=== PATIENT | male | born 1940 | race Two or more races ===

== ENCOUNTER 2017-03-16 17:22 | Emergency (ER) | payer MEDICARE ==
[~2017-03-16] VITALS: Ht 172.7 cm; Wt 81.2 kg
[~2017-03-16 17:22] MED LIST: /PANT40TA; ASPI81TA3; ATEN50TA2; LISI30TA3; NAPR500T; NITRO; VITAMIN D50000 UNT; tylenol
[2017-03-16] MEDS ORDERED: AMLO10TA2 PO (17:30)
[2017-03-16] MEDS ORDERED: LOSA100T36 PO (17:30)
[2017-03-16] MEDS: ACETAMINOPHEN 325 MG TAB PO ONE (18:30)
--- NOTE | 2017-03-16 18:46 | REP ---
Chest two views HISTORY: Cough Comparison: 06/07/2016 The lungs are clear. The heart is normal in size. The pulmonary vasculature is normal in appearance. The bony structure is intact. IMPRESSION: No acute disease. Signed by Orestes May MD 03/16/2017 06:37 P
[2017-03-16 19:49] LABS: BASO # 0.1 K/mm3 (0.0-0.2); BASO % 0.5 % (0.0-1.0); EOS # 0.1 K/mm3 (0.0-0.50); EOS % 0.8 % (0.0-3.0); LARGE UNSTAINED CELL # 0.2 K/mm3 (0.0-0.4); LARGE UNSTAINED CELL % 1.3 % (0.0-4.0); LYMPH # 0.9 K/mm3 (1.5-4.5); LYMPH % 5.4 % (24.0-44.0); MEAN CORPUSCULAR HEMOGLOBIN 32.1 pg (27.0-33.0); MEAN CORPUSCULAR HGB CONC 33.3 g/dl (32.0-36.5); MEAN CORPUSCULAR VOLUME 96.4 fl (80.0-96.0); MONO # 1.1 K/mm3 (0.0-0.8); MONO % 6.9 % (0.0-5.0); NEUTROPHILS # 14.1 K/mm3 (1.8-7.7); PLATELET COUNT, AUTOMATED 288 k/mm3 (150-450); RED CELL DISTRIBUTION WIDTH 12.2 % (11.5-14.5); WHITE BLOOD COUNT 16.5 K/mm3 (4.0-10.0)
[2017-03-16 19:53] LABS: CALCIUM LEVEL 8.1 MG/DL (8.8-10.2); CREATININE FOR GFR 1.28 MG/DL (0.70-1.30); POTASSIUM SERUM 3.8 MEQ/L (3.5-5.1)
[2017-03-16] MEDS ORDERED: ISOVUE-370 76% 100ML VIAL (Q9967) As Ordered ONE (20:51)
[2017-03-16] MEDS: NS 500 ML IV ONE (21:15)
--- NOTE | 2017-03-16 21:39 | ECGEPIP ---
Stationary ECG Study [facility] - ED Test Date: 2017-03-16 Pat Name: BRITTANEY GOLD Department: Room: - Gender: M Housekeeping Lead: waqas : 1940 Requested By: YOON Coronado PA-C Order Number: [id number] Reading MD: Candida Joe Measurements Intervals [place] Rate: 101 P: 63 PA: 173 QRS: 1 QRSD: 100 T: 21 QT: 328 QTc: 425 Interpretive Statements SINUS TACHYCARDIA ABNORMAL RHYTHM ECG ?OLD INFERIOR INFARCT NSTTW ABNORMALITY INCREASED RATE 06/14/13 Electronically Signed On 03-16-2017 21:39:31 EDT by Candida Joe
--- NOTE | 2017-03-16 22:10 | REPUSA ---
CLINICAL HISTORY: COUGH, FEVER TECHNIQUE: Multiple incremental axial, coronal and oblique images are obtained from the thoracic inle t to the upper abdomen. Intravenous contrast material was administered as per pulmonary embolism prot ocol. COMMENTS: There is excellent opacification of pulmonary arterial system without evidence for pulmonary embolism . Aorta is of normal caliber without evidence for dissection or aneurysm. Scattered upper lobe predominant centrilobular emphysema is noted. There is patchy confluent nodularity noted in the left upper lobe, may represent infectious process. Several small nodules are noted in the right upper lobe measuring up to 3 mm 4 mm calcified granuloma is noted in the superior segment of the RLL. Bilateral hilar and mediastinal lymphadenopathy seen, possibly reactive. There is no evidence of pleural or parenchymal mass. There are no pleural effusions. The heart and gr eat vessels are within normal limits. Images of the upper abdomen demonstrate no evidence of adrenal mass. Multiple hepatic hypodense lesio ns are note may represent cysts vs hemangiomas. Consider further workup with dedicated CT abdomen and pelvis with contrast The bony structures are free of lytic or blastic lesions. Multilevel degenerative changes are seen in volving the visualized thoracolumbar spine. Scattered calcifications are seen involving the aorta and major branches compatible with atherosclero sis. IMPRESSION: No evidence for pulmonary embolism. Scattered upper lobe predominant centrilobular emphysema is noted. There is patchy confluent nodularity noted in the left upper lobe, may represent infectious process. Several small nodules are noted in the right upper lobe measuring up to 3 mm 4 mm calcified granuloma is noted in the superior segment of the RLL. Bilateral hilar and mediastinal lymphadenopathy seen, possibly reactive. Multiple hepatic hypodense lesions are note may represent cysts vs hemangiomas. Consider further work up with dedicated CT abdomen and pelvis with contrast. Thank you for your kind referral of this patient.
[2017-03-16] MEDS ORDERED: TESS100C PO (22:21)
[2017-03-16] MEDS ORDERED: CHERSYP3 PO (22:21)
[2017-03-16] MEDS ORDERED: ZITHTAB PO (22:21)
[2017-03-16 22:22] VITALS: BP 135/61
[2017-03-16] MEDS: guaiFENesin/CODEINE SYRUP 5 ML UDC PO ONE (22:30)
--- NOTE | 2017-03-17 06:51 | ED PDOC ---
Post-Departure Follow-Up certitied letter sent to pt re formal read of cta . needs fu. no pcp documented. Kelvin Mayberry MD Mar 17, 2017 06:51
== END 2017-03-16 22:42 | disposition home or self-care (01) ==
LOC: M ED 17:22
DX: J18.9 Pneumonia, unspecified organism (principal); I25.2 Old myocardial infarction; Z79.82 Long term (current) use of aspirin; Z79.899 Other long term (current) drug therapy; Z88.1 Allergy status to other antibiotic agents; Z88.6 Allergy status to analgesic agent; Z88.8 Allergy status to other drugs, medicaments and biological substances
CPT/HCPCS: 36415; 71020; 71275; 80048; 85025; 93005; 99284; Q9967

== ENCOUNTER 2017-03-22 12:39 | Emergency (ER) | payer MEDICARE ==
[~2017-03-22] VITALS: Ht 172.7 cm; Wt 79.1 kg
[~2017-03-22 12:39] MED LIST changes: +AMLO10TA2 PO; +CHERSYP3 PO; +LOSA100T36 PO; +TESS100C PO; +ZITHTAB PO
[2017-03-22] MEDS ORDERED: NS 500 ML IV ONE (14:00)
[2017-03-22 15:08] LABS: BASO # 0.3 K/mm3 (0.0-0.2); BASO % 2.2 % (0.0-1.0); EOS # 0.4 K/mm3 (0.0-0.50); EOS % 3.6 % (0.0-3.0); LARGE UNSTAINED CELL # 0.3 K/mm3 (0.0-0.4); LARGE UNSTAINED CELL % 2.7 % (0.0-4.0); LYMPH # 1.7 K/mm3 (1.5-4.5); LYMPH % 13.6 % (24.0-44.0); MEAN CORPUSCULAR HEMOGLOBIN 31.6 pg (27.0-33.0); MEAN CORPUSCULAR HGB CONC 32.5 g/dl (32.0-36.5); MEAN CORPUSCULAR VOLUME 97.2 fl (80.0-96.0); MONO # 0.7 K/mm3 (0.0-0.8); MONO % 5.5 % (0.0-5.0); NEUTROPHILS # 8.8 K/mm3 (1.8-7.7); NEUTROPHILS % 72.4 % (36.0-66.0); PLATELET COUNT, AUTOMATED 476 k/mm3 (150-450); RED CELL DISTRIBUTION WIDTH 12.4 % (11.5-14.5); WHITE BLOOD COUNT 12.1 K/mm3 (4.0-10.0)
--- NOTE | 2017-03-22 15:09 | REP ---
TWO VIEW CHEST: COMPARISON: 03/16/2017. There is no evidence of acute infiltrate. No pleural effusion is seen. The heart is normal in size. The mediastinal silhouette is unremarkable. The visualized osseous structures are intact. There are mild degenerative changes of the spine. IMPRESSION: No acute pulmonary disease. Signed by Rell Pineda MD 03/22/2017 03:49 P
[2017-03-22 15:33] LABS: ANION GAP 6 MEQ/L (8-16); BLOOD UREA NITROGEN 18 MG/DL (7-18); CALCIUM LEVEL 8.4 MG/DL (8.8-10.2); CARBON DIOXIDE LEVEL 29 MEQ/L (21-32); CHLORIDE LEVEL 108 MEQ/L (98-107); CREATININE FOR GFR 1.24 MG/DL (0.70-1.30); GLOMERULAR FILTRATION RATE > 60.0 (>42); GLUCOSE, FASTING 110 MG/DL (83-110); SODIUM LEVEL 143 MEQ/L (136-145)
[2017-03-22 16:02] LABS: ALBUMIN 2.7 GM/DL (3.2-5.2); ALBUMIN/GLOBULIN RATIO 0.66 (1.00-1.93); BILIRUBIN,DIRECT 0.1 MG/DL (0.0-0.2); BILIRUBIN,TOTAL 0.4 MG/DL (0.2-1.0); TOTAL PROTEIN 6.8 GM/DL (6.4-8.2)
[2017-03-22] MEDS ORDERED: ALBU17IN INH (16:09)
[2017-03-22 16:19] VITALS: BP 152/81
--- NOTE | 2017-03-23 07:34 | ECGEPIP ---
Stationary ECG Study [facility] - ED Test Date: 2017-03-22 Pat Name: BRITTANEY GOLD Department: Room: - Gender: M Modeling Analyst: rn : 1940 Requested By: NANCY Arriaga Order Number: [id number] Reading MD: Candida Joe Measurements Intervals [place] Rate: 82 P: 70 CA: 168 QRS: -11 QRSD: 105 T: -10 QT: 386 QTc: 452 Interpretive Statements SINUS RHYTHM NSTTW ABNORMALITY ?PRIOR INFERIOR INFARCT DECREASED RATE 03/16/17 Electronically Signed On 03-23-2017 7:33:52 EDT by Candida Joe
== END 2017-03-22 16:21 | disposition home or self-care (01) ==
LOC: M ED 12:39
DX: J18.9 Pneumonia, unspecified organism (principal); I10 Essential (primary) hypertension; I25.10 Atherosclerotic heart disease of native coronary artery without angina pectoris; I25.2 Old myocardial infarction; Z95.5 Presence of coronary angioplasty implant and graft; Z88.1 Allergy status to other antibiotic agents; Z88.3 Allergy status to other anti-infective agents; Z88.8 Allergy status to other drugs, medicaments and biological substances; Z79.899 Other long term (current) drug therapy; Z79.2 Long term (current) use of antibiotics; Z79.82 Long term (current) use of aspirin

== ENCOUNTER → 2017-05-08 | Outpatient (REF) | payer MEDICARE ==
[~2017-05-08] MED LIST changes: +ALBU17IN INH
[2017-05-08 12:46] LABS: FOLATE 7.8 NG/ML
== END ==
LOC: M SFHCPLAZ 10:10
PROVIDERS: ATTEND Family Medicine
DX: D53.9 Nutritional anemia, unspecified (principal)
CPT/HCPCS: 36415; 82607; 82746; 86580; 90670; G0009; G0463

== ENCOUNTER → 2017-05-11 | Outpatient (CLI) | payer MEDICARE ==
[~2017-05-11] MED LIST changes: +ISOVUE-370 76% 100ML VIAL (Q9967) As Ordered ONE
--- NOTE | 2017-05-11 15:26 | REP ---
Clinical: Evaluate hepatic lesions. Technique: Axial contrast enhanced images from the lung bases to the pubic symphysis using 100 ml Isovue 370 intravenous contrast material along with precontrast, arterial phase, and delayed phase images of the abdomen with coronal and sagittal re-formations. Findings: Scattered hepatic lesions are identified throughout the liver which measure up to approximately 2.2 cm maximal diameter and remain low density throughout all sequences and compatible with benign hepatic cysts. Spleen, pancreas, gallbladder, bilateral adrenal glands and kidneys are normal. The enteric system is without obstruction or acute inflammatory process and a normal terminal ileum and appendix are identified in the right lower quadrant. Scattered sigmoid diverticula noted without acute diverticulitis. The pelvis demonstrates normal bladder and heterogeneous, enlarged prostate gland measuring 4.8 cm maximal diameter with mass effect on the bladder base noted. No ascites. No adenopathy. No free air. Small hiatal hernia at the gastroesophageal junction noted. Lung bases demonstrate COPD type changes with mild bronchiectasis. Impression: 1. Hepatic lesions measuring up to 2.2 cm all compatible with benign hepatic cysts. 2. Few scattered sigmoid diverticula without acute diverticulitis. 3. Enlarged heterogeneous prostate gland with mass effect on the base of the bladder. Signed by Nick Mckoy MD 05/11/2017 03:18 P
== END ==
LOC: M RAD 14:30
PROVIDERS: ATTEND Family Medicine
DX: K76.89 Other specified diseases of liver (principal)
CPT/HCPCS: 74178; Q9967

== ENCOUNTER → 2018-02-11 | Outpatient (CLI) | payer MEDICARE | LOC: M RAD 07:32 | DX: Z87.891 Personal history of nicotine dependence (principal) | CPT/HCPCS: 76706 ==

== ENCOUNTER 2020-06-02 00:07 | Emergency (ER) | payer MEDICARE ==
[~2020-06-02] VITALS: Ht 175.3 cm; Wt 75.9 kg
[~2020-06-02 00:07] MED LIST changes: -/PANT40TA; -AMLO10TA2 PO; +AMLO1TAB25 PO; -ISOVUE-370 76% 100ML VIAL (Q9967) As Ordered ONE; -LOSA100T36 PO; +LOSA100T50 PO; +PROT1TAB2
[2020-06-02] MEDS ORDERED: PLAV1TAB2 PO (00:22)
[2020-06-02] MEDS ORDERED: ROSU10TA6 PO (00:34)
[2020-06-02] MEDS ORDERED: CARV6.25 PO (00:34)
[2020-06-02 01:08] LABS: BASO % 0.3 % (0.0-1.0); EOS # 0.2 10^3/uL (0.0-0.5); EOS % 2.4 % (0.0-3.0); HEMATOCRIT 42.1 % (42.0-52.0); HEMOGLOBIN 13.4 g/dl (13.5-17.5); LYMPH # 1.3 10^3/uL (1.5-5.0); LYMPH % 14.9 % (24.0-44.0); MEAN CORPUSCULAR HEMOGLOBIN 30.6 pg (27.0-33.0); MEAN CORPUSCULAR HGB CONC 31.8 g/dl (32.0-36.5); MEAN CORPUSCULAR VOLUME 96.1 fl (80.0-96.0); MONO # 0.7 10^3/uL (0.0-0.8); MONO % 8.3 % (0.0-5.0); NEUTROPHILS # 6.4 10^3/uL (1.5-8.5); NEUTROPHILS % 73.4 % (36.0-66.0); PLATELET COUNT, AUTOMATED 325 10^3/uL (150-450); RED BLOOD COUNT 4.38 10^6/uL (4.30-6.10); WHITE BLOOD COUNT 8.8 10^3/uL (4.0-10.0)
--- NOTE | 2020-06-02 01:23 | REPVR ---
PROCEDURE INFORMATION: Exam: XR Chest, 1 View Exam date and time: 06/02/2020 1:14 AM Age: 80 years old Clinical indication: Other: Chest pain TECHNIQUE: Imaging protocol: XR of the chest Views: 1 view. COMPARISON: CR Chest, 2 view PA, Lat 03/22/2017 2:10 PM FINDINGS: Lungs: Unremarkable. No consolidation. Pleural space: Unremarkable. No pleural effusion. No pneumothorax. Heart/Mediastinum: Unremarkable. No cardiomegaly. Bones/joints: Unremarkable. IMPRESSION: Negative chest, similar to 03/22/2017. Electronically signed by: Van Eller On 06/02/2020 01:23:22 AM
[2020-06-02 01:44] LABS: ALBUMIN 3.3 GM/DL (3.2-5.2); ALT/SGPT 14 U/L (12-78); BILIRUBIN,DIRECT < 0.1 MG/DL (0.0-0.2); BILIRUBIN,TOTAL 0.4 MG/DL (0.2-1.0); FREE T4 1.26 NG/DL (0.76-1.46); LIPASE 67 U/L (73-393); NT-PRO BNP 152 PG/ML (<450); TOTAL PROTEIN 6.9 GM/DL (6.4-8.2)
[2020-06-02 02:45] VITALS: BP 161/86
--- NOTE | 2020-06-02 07:45 | ECGEPIP ---
[facility] - ED Test Date: 2020-06-02 Pat Name: BRITTANEY GOLD Department: Room: - Gender: Male Senior Executive Assistant: lr : 1940 Requested By: MIGNON Marcus Order Number: [id number] Reading MD: Fabián Godwin Measurements Intervals [place] Rate: 98 P: 64 NE: 183 QRS: -15 QRSD: 96 T: 25 QT: 340 QTc: 434 Interpretive Statements SINUS RHYTHM NSTTW ABNORMALITY(S) BASELINE ARTIFACT AFFECTS INTERPRETATION SIMILAR TO 03/22/17 Electronically Signed on 06-02-2020 7:45:17 EDT by Fabián Godwin
== END 2020-06-02 03:29 | disposition home or self-care (01) ==
LOC: M ED 00:07
DX: I10 Essential (primary) hypertension (principal); R94.31 Abnormal electrocardiogram [ECG] [EKG]; I25.10 Atherosclerotic heart disease of native coronary artery without angina pectoris; K21.9 Gastro-esophageal reflux disease without esophagitis; Z79.01 Long term (current) use of anticoagulants; Z79.899 Other long term (current) drug therapy; Z79.82 Long term (current) use of aspirin; Z88.1 Allergy status to other antibiotic agents; Z88.8 Allergy status to other drugs, medicaments and biological substances; Z87.891 Personal history of nicotine dependence; Z82.49 Family history of ischemic heart disease and other diseases of the circulatory system

== ENCOUNTER 2023-03-09 02:18 | Emergency (ER) | payer MEDICARE ==
[~2023-03-09] VITALS: Ht 172.7 cm; Wt 75.0 kg
[~2023-03-09 02:18] MED LIST changes: +CARV6.25 PO; +CLOP75TA99 PO; +LOSA100T46 PO; -LOSA100T50 PO; +ROSU10TA6 PO
[2023-03-09 04:09] LABS: BASO % 0.3 % (0.0-1.0); EOS % 0.2 % (0.0-3.0); HEMATOCRIT 36.1 % (42.0-52.0); HEMOGLOBIN 11.8 g/dl (13.5-17.5); LYMPH # 0.5 10^3/uL (1.5-5.0); LYMPH % 3.6 % (24.0-44.0); MEAN CORPUSCULAR HEMOGLOBIN 31.8 pg (27.0-33.0); MEAN CORPUSCULAR HGB CONC 32.7 g/dl (32.0-36.5); MEAN CORPUSCULAR VOLUME 97.3 fl (80.0-96.0); MONO # 1.2 10^3/uL (0.0-0.8); NEUTROPHILS # 11.2 10^3/uL (1.5-8.5); NEUTROPHILS % 86.4 % (36.0-66.0); PLATELET COUNT, AUTOMATED 257 10^3/uL (150-450); RED BLOOD COUNT 3.71 10^6/uL (4.30-6.10); WHITE BLOOD COUNT 12.9 10^3/uL (4.0-10.0)
[2023-03-09 04:30] LABS: BLOOD UREA NITROGEN 20 MG/DL (9-23); CALCIUM LEVEL 7.4 MG/DL (8.3-10.6); CARBON DIOXIDE LEVEL 27 MMOL/L (20-31); CHLORIDE LEVEL 107 MMOL/L (98-107); CREATININE FOR GFR 1.21 MG/DL (0.70-1.30); GLOMERULAR FILTRATION RATE > 60.0 (>35); GLUCOSE, FASTING 124 MG/DL (74-106); POTASSIUM SERUM 4.3 MMOL/L (3.5-5.1); SODIUM LEVEL 139 MMOL/L (136-145)
[2023-03-09] MEDS ORDERED: ACETAMINOPHEN TAB 650MG DOSE (2X325MG) PO ONE (07:05)
[2023-03-09] MEDS ORDERED: BENZ200C70 PO ×2 (09:26→09:57)
[2023-03-09 09:54] VITALS: BP 147/77; TEMP 100.2; O2SAT 92
[2023-03-09 09:56] VITALS: O2SAT 92
== END 2023-03-09 10:21 | disposition home or self-care (01) ==
LOC: EDBD 02:18 → M ED 02:18
DX: U07.1 COVID-19 (principal); I10 Essential (primary) hypertension; I25.2 Old myocardial infarction; Z85.038 Personal history of other malignant neoplasm of large intestine; Z85.828 Personal history of other malignant neoplasm of skin; Z88.6 Allergy status to analgesic agent; Z88.8 Allergy status to other drugs, medicaments and biological substances; Z79.51 Long term (current) use of inhaled steroids; Z79.82 Long term (current) use of aspirin; Z79.899 Other long term (current) drug therapy

== ENCOUNTER 2023-03-16 08:25 | Emergency (ER) | payer MEDICARE ==
[~2023-03-16] VITALS: Ht 172.7 cm; Wt 72.7 kg
[~2023-03-16 08:25] MED LIST changes: +BENZ200C70 PO
[2023-03-16] MEDS ORDERED: NS 1,000 ML IV SCH (08:45)
[2023-03-16] MEDS ORDERED: CARV12.5 PO (08:46)
[2023-03-16] MEDS ORDERED: OMEP40CA4 PO (08:50)
[2023-03-16 09:18] VITALS: TEMP 98.3
[2023-03-16 09:30] LABS: VENOUS BASE EXCESS -1.6 (-2.0-2.0); VENOUS HCO3 24.8 MMOL/L (23.0-27.0); VENOUS PARTIAL PRESSURE CO2 48.1 mmHg (38.0-50.0); VENOUS PARTIAL PRESSURE O2 33.6 mmHg (30.0-50.0); VENOUS STANDARD HCO3 22.2 MMOL/L; VENOUS TOTAL CO2 26.3 MMOL/L (24.0-28.0)
[2023-03-16] MEDS: COMBIVENT RESPIMAT 100-20MCG INHALER 4GM INH SCH (09:43)
[2023-03-16 09:44] LABS: BASO # 0.1 10^3/uL (0.0-0.2); BASO % 0.4 % (0.0-1.0); EOS % 0.1 % (0.0-3.0); HEMATOCRIT 36.2 % (42.0-52.0); HEMOGLOBIN 12.4 g/dl (13.5-17.5); LYMPH % 6.9 % (24.0-44.0); MEAN CORPUSCULAR HEMOGLOBIN 34.6 pg (27.0-33.0); MEAN CORPUSCULAR HGB CONC 34.3 g/dl (32.0-36.5); MEAN CORPUSCULAR VOLUME 101.1 fl (80.0-96.0); MONO # 1.5 10^3/uL (0.0-0.8); MONO % 10.4 % (2.0-8.0); NEUTROPHILS # 11.2 10^3/uL (1.5-8.5); NEUTROPHILS % 80.5 % (36.0-66.0); PLATELET COUNT, AUTOMATED 429 10^3/uL (150-450); RED BLOOD COUNT 3.58 10^6/uL (4.30-6.10)
[2023-03-16 09:57] LABS: INR 1.1; PROTHROMBIN TIME 14.4 SECONDS (12.5-14.5)
[2023-03-16 10:20] LABS: ALBUMIN 2.7 G/DL (3.2-5.2); BILIRUBIN,DIRECT 0.3 MG/DL (<0.4); BILIRUBIN,TOTAL 0.8 MG/DL (0.3-1.2); CALCIUM LEVEL 8.1 MG/DL (8.3-10.6); CREATININE FOR GFR 1.32 MG/DL (0.70-1.30); GLOMERULAR FILTRATION RATE 55.1 (>35); POTASSIUM SERUM 4.4 MMOL/L (3.5-5.1); TOTAL PROTEIN 6.5 G/DL (5.7-8.2)
[2023-03-16 10:27] LABS: THYROID STIMULATING HORMONE 1.11 uIU/ML (0.55-4.78); THYROXINE (T4) 12.3 UG/DL (4.5-10.9)
[2023-03-16] MEDS ORDERED: ISOVUE-370 76% 100ML VIAL As Ordered ONE (10:33)
[2023-03-16 11:21] LABS: VENOUS O2 SATURATION 72.5 % (60.0-80.0)
[2023-03-16 12:24] VITALS: O2SAT 93
[2023-03-16] MEDS ORDERED: VENTAER INH (13:27)
[2023-03-16] MEDS ORDERED: DOXY100C82 PO (13:28)
[2023-03-16 13:45] VITALS: BP 143/64; O2SAT 93
== END 2023-03-16 14:16 | disposition home or self-care (01) ==
LOC: EDBD 08:25 → M ED 08:25
DX: U07.1 COVID-19 (principal); I10 Essential (primary) hypertension; I25.2 Old myocardial infarction; Z95.5 Presence of coronary angioplasty implant and graft; Z88.6 Allergy status to analgesic agent; Z88.8 Allergy status to other drugs, medicaments and biological substances; Z79.51 Long term (current) use of inhaled steroids; Z79.899 Other long term (current) drug therapy; Z79.82 Long term (current) use of aspirin
CPT/HCPCS: 71045; 71275; 80048; 80076; 82803; 83605; 83880; 84436; 84443; 85025; 85610; 87040; 93005; 93041; 94760; 96360; 96361; 99285; Q9967